=== PATIENT | male | born 1990 | race American Indian/Alaskan Native ===

== ENCOUNTER 2017-01-13 06:23 | Emergency (ER) | payer MEDICAID, OTHER ==
[2017-01-13 06:38] VITALS: O2SAT 98
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
[2017-01-13] MEDS ORDERED: Tetanus/Diphtheria Toxoids 0.5 ml Syringe IM ONE ×2 (07:54→08:19)
[2017-01-13] MEDS ORDERED: Lidocaine 1% w Epi 1:100,000 Inj INJ STA (07:54)
[2017-01-13] MEDS ORDERED: Bacitracin 500 Units/gm Oint Foilpak UD TOP STA (07:54)
[2017-01-13] MEDS ORDERED: Bacitracin 500 Units/gm Oint Foilpak UD ONE (08:02)
[2017-01-13] MEDS ORDERED: Lidocaine 2% w Epi 1:100,000 Inj IJ ONE (08:03)
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
[2017-01-13 09:17] VITALS: BP 116/63; PULSE 83; RESP 16; TEMP 98.7
== END 2017-01-13 11:43 | disposition left against medical advice (07) ==
LOC: C.ER 06:23
DX: S01.111A Laceration without foreign body of right eyelid and periocular area, initial encounter (principal); Y00.XXXA Assault by blunt object, initial encounter; Y92.9 Unspecified place or not applicable